=== PATIENT | female | born 1970 | race American Indian/Alaskan Native ===

== ENCOUNTER 2018-11-05 08:57 | Emergency (ER) | payer BC ==
--- NOTE | 2018-11-05 10:39 | ER ---
REASON FOR EMERGENCY ROOM VISIT: Sprained ankle. HISTORY: This 48-year-old woman is visiting the area with her from [place]. Yesterday, while they exited a bar, she twisted her left ankle while stepping down from a curb. It sounds like she had a forced inversion of the ankle when she came down on. Throughout the night, it swelled and became increasingly painful for her. She came in this morning to have an x-ray taken to rule out a fracture. PAST MEDICAL HISTORY: Noncontributory. MEDICATIONS: Include Soma 250 p.o. t.i.d., buprenorphine HCl, and naloxone HCl 2 sublingual b.i.d. ALLERGIES: TO CLINDAMYCIN, PENICILLIN, SULFAMETHOXAZOLE, TETRACYCLINE, AND TRIMETHOPRIM. REVIEW OF SYSTEMS: Negative. PHYSICAL EXAMINATION: Reveals a pleasant woman in no acute distress. Her left ankle does have some swelling laterally about the lateral malleolus area. There is some tenderness to passive range of motion and tenderness to direct palpation along the ankle joint itself, particularly anteriorly. There is no bony crepitus noted. Distal perfusion is normal. IMAGES: X-rays of her left ankle reveal no evidence of fracture or dislocation. IMPRESSION: Left ankle sprain. PLAN: They are traveling back to [place] today. She does not want anything for pain apart from Tylenol or ibuprofen. I encouraged her to keep it iced and Vivek wrapped and to try to keep it elevated if possible. We had her fitted for crutches. She should follow up with her provider in [place] if she does not notice any improvement within the next week. All questions were answered. They understand and agree with this plan. LAURA /[id number]
--- NOTE | 2018-11-06 05:13 | CR ---
DATE OF SERVICE: 11/05/18 CLINICAL DATA: Twisted left ankle. LEFT ANKLE: There is soft tissue swelling over the medial and lateral malleoli. No acute fracture or dislocation. [id number] [facility]
== END 2018-11-05 10:00 | disposition home or self-care (01) ==
LOC: LB.ED 08:57
DX: S93.402A Sprain of unspecified ligament of left ankle, initial encounter (principal); X50.1XXA Overexertion from prolonged static or awkward postures, initial encounter; Z88.0 Allergy status to penicillin; Z88.1 Allergy status to other antibiotic agents; Z79.899 Other long term (current) drug therapy; Z88.2 Allergy status to sulfonamides
CPT/HCPCS: 73610-LT; 99283-25